=== PATIENT | female | born 1980 | race Caucasian/White ===

== ENCOUNTER 2017-11-19 10:58 | Observation (INO) | payer OTHER ==
[~2017-11-19] VITALS: Ht 160 cm; Wt 75.3 kg
[2017-11-19 11:20] VITALS: BP 110/69
[2017-11-19] MEDS ORDERED: ASPI81 PO (11:30)
[2017-11-19] MEDS ORDERED: PREN1TAB80 PO (11:30)
== END 2017-11-19 12:35 | disposition home or self-care (01) ==
LOC: 4S 10:58
PROVIDERS: ADMIT Obstetrics & Gynecology; ATTEND Obstetrics & Gynecology
DX: O09.523 Supervision of elderly multigravida, third trimester (principal); Z3A.39 39 weeks gestation of pregnancy
CPT/HCPCS: 59025; G0378

== ENCOUNTER 2017-11-21 09:50 | Inpatient (IN) | payer OTHER ==
[~2017-11-21 09:50] MED LIST: ASPI81 PO; PREN1TAB80 PO
[2017-11-21 10:15] VITALS: BP 112/74
[2017-11-21] MEDS ORDERED: RINGERS SOLUTION,LACTATED 1,000 ML IV ONE ×2 (10:17→10:45)
[2017-11-21] MEDS ORDERED: CITRIC ACID/SODIUM CITRATE 30 ML SOLUTION UDCUP PO ONE (10:30)
[2017-11-21] MEDS ORDERED: METOCLOPRAMIDE HCL 5 MG/ML 2 ML VIAL IVP ONE (10:30)
[2017-11-21] MEDS ORDERED: CeFAZolin 2 GM/DEXTROSE 50 ML IV ONE (10:44)
[2017-11-21] MEDS ORDERED: FentaNYL CITRATE-PF 100 MCG/2 ML VIAL ONE (10:45)
[2017-11-21] MEDS ORDERED: MORPHINE SULFATE/PF 0.5 MG/ML 10 ML AMP ONE (10:45)
[2017-11-21] MEDS ORDERED: INFLUENZA VIRUS VACCINE QVS 2017-18 (3YR+)/PF 60 MCG/0.5 ML SYRINGE IM ONE (11:00)
[2017-11-21 11:08] LABS: BASOPHILS % (AUTO) 0.2 % (0.0-2.0); EOSINOPHILS % (AUTO) 0.3 % (1.0-6.0); HEMATOCRIT 36.2 % (36-46); HEMOGLOBIN 12.2 g/dL (12.0-16.0); LYMPHOCYTES # (AUTO) 1.5 K/uL (1.0-4.8); LYMPHOCYTES % (AUTO) 14.2 % (22.0-44.0); MEAN CORPUSCULAR HEMOGLOBIN 29.4 pg (26.0-34.0); MEAN CORPUSCULAR HGB CONC 33.8 G/dL (31.0-37.0); MEAN CORPUSCULAR VOLUME 87 fL (80-100); MONOCYTES # (AUTO) 0.6 K/uL (0.1-1.0); MONOCYTES % (AUTO) 6.2 % (2.0-9.0); NEUTROPHILS # (AUTO) 8.3 K/uL (1.8-7.7); NEUTROPHILS % (AUTO) 79.1 % (40.0-70.0); PLATELET COUNT (AUTO)-OB 293 K/uL (150-450); RED BLOOD CELL COUNT(AUTO) 4.15 MIL/uL (4.00-5.20); RED CELL DISTRIBUTION WIDTH 14.6 % (11.5-14.5)
[2017-11-21] MEDS ORDERED: OXYTOCIN 10 UNITS/ML VIAL IM ONE (12:00)
[2017-11-21] MEDS ORDERED: PROPOFOL 1% 20 ML VIAL IVP ONE (12:00)
[2017-11-21] MEDS ORDERED: 0.9% SODIUM CHLORIDE 10 ML VIAL IVP ONE (12:00)
[2017-11-21] MEDS ORDERED: EPHEDrine SULFATE 50 MG/ML VIAL IM ONE (12:00)
[2017-11-21] MEDS ORDERED: ONDANSETRON HCL 4 MG/2 ML VIAL IVP ONE (12:00)
[2017-11-21] MEDS ORDERED: NALOXONE HCL 0.4 MG/ML VIAL IVP PRN (12:30)
[2017-11-21] MEDS ORDERED: ONDANSETRON HCL 4 MG/2 ML VIAL IVP PRN ×2 (12:30)
[2017-11-21] MEDS ORDERED: GLYCERIN/WITCH HAZEL LEAF 40 PADS JAR TP PRN ×2 (12:30→14:00)
[2017-11-21] MEDS ORDERED: NALBUPHINE HCL 10 MG/ML VIAL IVP PRN ×3 (12:30→18:00)
[2017-11-21] MEDS ORDERED: ACETAMINOPHEN/CODEINE 300-30 MG TABLET PO PRN ×4 (12:30→14:00)
[2017-11-21] MEDS ORDERED: DiphenhydrAMINE HCL 50 MG/ML VIAL IVP PRN ×2 (12:30)
[2017-11-21] MEDS ORDERED: BENZOCAINE 20%/MENTHOL 56 GM SPRAY CANISTER TP PRN ×2 (12:30→14:00)
[2017-11-21] MEDS ORDERED: FentaNYL CITRATE-PF 100 MCG/2 ML VIAL IVP PRN ×4 (12:30)
[2017-11-21] MEDS ORDERED: LANOLIN 7 GM OINTMENT TP PRN ×2 (12:30→14:00)
[2017-11-21] MEDS ORDERED: MEPERIDINE-PF 25 MG/ML SYRINGE IVP PRN (12:30)
[2017-11-21] MEDS ORDERED: ACETAMINOPHEN 1000 MG/ISO-OSM 100 ML IV ONE (12:46)
[2017-11-21] MEDS: ACETAMINOPHEN 1000 MG/ISO-OSM 100 ML IV SCH ×2 (12:59→21:21)
[2017-11-21] MEDS: NALBUPHINE HCL 10 MG/ML VIAL IVP PRN (18:04)
[2017-11-21] MEDS ORDERED: OXYGEN THERAPY IH SCH ×3 (20:00)
[2017-11-22] MEDS: DEXTROSE 5%-0.45% SODIUM CHL 1,000 ML IV SCH ×2 (03:47→07:49)
[2017-11-22] MEDS ORDERED: IBUPROFEN 800 MG TABLET PO SCH (05:00)
[2017-11-22] MEDS: NALBUPHINE HCL 10 MG/ML VIAL IVP PRN (05:30)
[2017-11-22] MEDS: MAGNESIUM HYDROXIDE SUSPENSION 30 ML UDCUP PO SCH ×2 (09:23→21:57)
[2017-11-22] MEDS: IBUPROFEN 800 MG TABLET PO SCH ×2 (10:51→18:07)
[2017-11-22] MEDS ORDERED: MIDAZOLAM HCL 2 MG/2 ML VIAL IVP ONE (12:00)
[2017-11-22] MEDS ORDERED: KETAMINE HCL 50 MG/ML 10 ML VIAL IVP ONE (12:00)
[2017-11-23] MEDS: IBUPROFEN 800 MG TABLET PO SCH ×4 (00:53→18:52)
[2017-11-23] MEDS: MAGNESIUM HYDROXIDE SUSPENSION 30 ML UDCUP PO SCH ×2 (09:05→21:39)
[2017-11-24] MEDS: IBUPROFEN 800 MG TABLET PO SCH ×2 (01:03→07:03)
[2017-11-24] MEDS: MAGNESIUM HYDROXIDE SUSPENSION 30 ML UDCUP PO SCH (09:46)
[2017-11-24] MEDS ORDERED: IBUP-2070 PO (11:07)
[2017-11-24] MEDS ORDERED: PERCT PO ×2 (11:09)
[2017-11-24] MEDS ORDERED: DSS100 PO (11:09)
== END 2017-11-24 11:35 | disposition home or self-care (01) | DRG 766 ==
LOC: 4S 09:50 → OBSVTOIN 09:50 → 4S 13:00
PROVIDERS: ADMIT Obstetrics & Gynecology; ATTEND Obstetrics & Gynecology
PROC: 10D00Z1 Extraction of Products of Conception, Low, Open Approach (ICD-10-PCS; principal; 2017-11-21)
DX: O34.211 Maternal care for low transverse scar from previous cesarean delivery (principal); O09.513 Supervision of elderly primigravida, third trimester; Z37.0 Single live birth; Z3A.39 39 weeks gestation of pregnancy; Z28.21 Immunization not carried out because of patient refusal
CPT/HCPCS: 86850; 86900; 86901; 87081; J0131; J0690; J2250; J2274; J2300; J2405; J2590; J2704; J2765; J3010; J3490; J7120